=== PATIENT | male | born 1985 | race American Indian/Alaskan Native ===

== ENCOUNTER 2017-02-03 10:46 | Emergency (ER) | payer SELFPAY ==
--- NOTE | 2017-02-03 15:00 | Emergency Department Report ---
ED General Adult HPI - General Chief complaint: Recheck/Abnormal Lab/Rx Stated complaint: MED REFILL Time Seen by Provider: 02/03/17 14:49 Source: patient Mode of arrival: Ambulatory Limitations: Other (pt does not know what medication he is taking ) - History of Present Illness Initial comments: PT states that he was sent to the ED to get a refill on his schizophrenia medication. PT states he does not know what medication he takes. PT states his father usually administers his medication. PT states he last got his medication from [facility] ( a few months ago). MD Complaint: medication refill -: Gradual Associated Symptoms: denies: chest pain, loss of appetite, nausea/vomiting - Related Data Previous Rx's Medication Instructions Recorded Last Taken Type risperiDONE [RisperDAL] 2 mg PO BID #6 tablet 02/03/17 Unknown Rx Allergies Allergy/AdvReac Type Severity Reaction Status Date / Time No Known Allergies Allergy Verified 02/03/17 11:12 ED Review of Systems ROS: Stated complaint: MED REFILL Other details as noted in HPI Comment: All other systems reviewed and negative ENT: denies: ear pain, throat pain Cardiovascular: denies: chest pain Gastrointestinal: denies: abdominal pain Neurological: denies: headache Psychiatric: denies: auditory hallucinations, visual hallucinations, homicidal thoughts, suicidal thoughts ED Past Medical Hx - Past Medical History Hx Psychiatric Treatment: Yes (SCHIZOPHRENIA) - Surgical History Past Surgical History?: No - Social History Smoking Status: Never Smoker Substance Use Type: None - Medications Home Medications: Home Medications Medication Instructions Recorded Confirmed Last Taken Type risperiDONE [RisperDAL] 2 mg PO BID #6 tablet 02/03/17 Unknown Rx ED Physical Exam - General Limitations: No Limitations General appearance: alert, in no apparent distress - Head Head exam: Present: atraumatic, normocephalic - Eye Eye exam: Present: normal appearance, PERRL, EOMI. Absent: conjunctival injection - ENT ENT exam: Present: normal exam, normal external ear exam - Neck Neck exam: Present: normal inspection, full ROM - Respiratory Respiratory exam: Present: normal lung sounds bilaterally. Absent: respiratory distress, wheezes, rales, chest wall tenderness - Cardiovascular Cardiovascular Exam: Present: regular rate, normal rhythm, normal heart sounds - GI/Abdominal GI/Abdominal exam: Present: soft. Absent: tenderness - Extremities Exam Extremities exam: Present: normal inspection, full ROM - Back Exam Back exam: Present: normal inspection, full ROM. Absent: tenderness, CVA tenderness (R), CVA tenderness (L) - Neurological Exam Neurological exam: Present: alert, oriented X3, normal gait - Psychiatric Psychiatric exam: Present: flat affect. Absent: anxious, manic, homicidal ideation, suicidal ideation - Expanded Psychiatric Exam Expanded Focused psych exam: Absent: pressured speech, paranoid, catatonic, mute, restlessness, flight of ideas - Skin Skin exam: Present: warm, dry, intact, normal color ED Course Vital Signs 02/03/17 11:16 Temperature 98.6 F Pulse Rate 66 Respiratory 18 Rate Blood Pressure 111/79 O2 Sat by Pulse 99 Oximetry - Reevaluation(s) Reevaluation #1: 02/03/17 15:02 Pt does not know what medication he is supposed to be taking. Attempted to look pt up in [employer] website but no pt was found. Attempted to call pt's father - number on face sheet, but no answer. Reevaluation #2: 02/03/17 15:11 Spoke with Tomas Hightower, the territory manager of [employer], and he states he will try to contact the pt's father for RX information. Tomas is asking to be called back at 1800. Reevaluation #3: 02/03/17 17:30 attempted to call pt's father again, no answer. Attempted to call Ahsan Hightower again, no answer. Reevaluation #4: 02/03/17 18:42 attempted to call Ahsan Hightower again, no answer. Attempted to call pt's father again, PT's father answered but does not know what medication Carlos is on. He states that he has been on many medications recently. Pt's father states that pt has follow up appointment scheduled. PT uses [facility]. 02/03/17 18:47 Called Pharmacy. PT has RX on file for Risperdal 2mg po bid. PT has refills on hold at pharmacy. 02/03/17 18:54 PT's father aware that pt has refill on his RX and he states he can pick it up on Monday. Reevaluation #5: 02/03/17 18:57 PT aware of plan of care. No questions at this time. - Pulse Oximetry Interpretation Digit-Finger Initial Pulse Oximetry Readin Actions Taken: none ED Medical Decision Making - Differential Diagnosis medication refill Critical Care Time: No Critical care attestation.: If time is entered above; I have spent that time in minutes in the direct care of this critically ill patient, excluding procedure time. ED Disposition Clinical Impression: Schizophrenia Qualifiers: Schizophrenia type: unspecified Qualified Code(s): F20.9 - Schizophrenia, unspecified Disposition: - TO HOME OR SELFCARE Is pt being admited?: No Does the pt Need Aspirin: No Condition: Stable Instructions: Schizophrenia (ED) Additional Instructions: [facility] has a refill of your medication for 1 month. I spoke with your father and he plans on picking that up on Monday or Monday. Keep your appointment with your psychiatrist on February 13 return to the ED if any concerns Prescriptions: risperiDONE [RisperDAL] 2 mg PO BID #6 tablet Referrals: PRIMARY CARE, [Primary Care Provider] - 3-5 Days Time of Disposition: 19:01
[2017-02-03] MEDS ORDERED: RisperDAL PO ONE (18:54)
[2017-02-03 20:25] VITALS: BP 118/76
== END 2017-02-03 20:25 | disposition home or self-care (01) ==
LOC: ED 10:46
DX: F20.9 Schizophrenia, unspecified (principal)
CPT/HCPCS: 99283

== ENCOUNTER 2017-12-24 02:37 | Emergency (ER) | payer SELFPAY ==
[2017-12-24 03:59] LABS: Basophils % (Auto) 0.5 % (0.0-1.8); Eosinophils % (Auto) 0.2 % (0.0-4.3); Hematocrit 39.3 % (35.5-45.6); Hemoglobin 13.1 gm/dl (11.8-15.2); Lymphocytes # (Auto) 1.3 K/mm3 (1.2-5.4); Lymphocytes % (Auto) 30.6 % (13.4-35.0); Mean Corpuscular HGB Conc 33 % (32-34); Mean Corpuscular Hemoglobin 31 pg (28-32); Mean Corpuscular Volume 92 fl (84-94); Monocytes # (Auto) 0.3 K/mm3 (0.0-0.8); Monocytes % (Auto) 7.5 % (0.0-7.3); Platelet Count 234 K/mm3 (140-440); Red Blood Count 4.27 M/mm3 (3.65-5.03); Red Cell Distribution Width 13.3 % (13.2-15.2)
[2017-12-24 04:08] LABS: BUN/Creatinine Ratio 10; Blood Urea Nitrogen 10 mg/dL (9-20); Calcium 9.2 mg/dL (8.4-10.2); Hemolysis Index 6
[2017-12-24 08:06] LABS: Bilirubin,Urine NEG (Negative); Blood,Urine SM (Negative); Color,Urine Yellow (Yellow); Mucus,Urine 1+ /HPF; Protein,Urine <15 mg/dL mg/dL (Negative); Urobilinogen,Urine < 2.0 mg/dL (<2.0)
[2017-12-24 08:13] LABS: Amphetamine Screen,Urine PRESUMPTIVE NEGATIVE; Benzodiazepines Screen,Urine PRESUMPTIVE NEGATIVE; Cannabinoid Screen,Urine PRESUMPTIVE NEGATIVE; Cocaine Screen,Urine PRESUMPTIVE NEGATIVE; Methadone Screen,Urine PRESUMPTIVE NEGATIVE; Opiate Screen,Urine PRESUMPTIVE NEGATIVE
[2017-12-24 10:32] VITALS: BP 104/70
--- NOTE | 2017-12-24 11:13 | Emergency Department Report ---
ED General Adult HPI - General Chief complaint: Psych Stated complaint: MH Time Seen by Provider: 12/24/17 11:05 Source: patient, RN notes reviewed, old records reviewed Mode of arrival: Ambulatory Limitations: No Limitations - History of Present Illness Initial comments: This is a 32-year-old male who is known to this provider previously, has a history of schizophrenia, reports being on Risperdal, and reports being compliant with his medication. He presents to the ER with a complaint of auditory hallucinations for 3 days. The hallucinations are not commanding him to harm himself or harm other people. He states that the hallucinations are stating "hey, how are you?." He denies headache, neck pain, chest pain, abdominal pain, shortness of breath. He denies wanting to overdose. He denies urinary symptoms. These hallucinations that he is endorsing do not have exacerbating or relieving factors and do not radiate anywhere. -: Gradual Severity scale (0 -10): 0 Consistency: intermittent Improves with: cold therapy Worsens with: none Associated Symptoms: denies: confusion, chest pain, cough, diaphoresis, fever/ chills, headaches, loss of appetite, malaise, nausea/vomiting, rash, seizure, shortness of breath, syncope, weakness Treatments Prior to Arrival: none - Related Data Previous Rx's Medication Instructions Recorded Last Taken Type risperiDONE [RisperDAL] 2 mg PO BID #6 tablet 02/03/17 Unknown Rx Allergies Allergy/AdvReac Type Severity Reaction Status Date / Time No Known Allergies Allergy Verified 02/03/17 11:12 ED Review of Systems ROS: Stated complaint: MH Other details as noted in HPI Comment: All other systems reviewed and negative Constitutional: denies: fever Eyes: denies: vision change ENT: denies: epistaxis Respiratory: denies: cough Cardiovascular: denies: chest pain Gastrointestinal: denies: abdominal pain Genitourinary: denies: dysuria Musculoskeletal: denies: back pain Neurological: denies: weakness, numbness, paresthesias, confusion Psychiatric: auditory hallucinations. denies: anxiety, depression, visual hallucinations, homicidal thoughts, suicidal thoughts ED Past Medical Hx - Past Medical History Previous Medical History?: Yes Hx Psychiatric Treatment: Yes (SCHIZOPHRENIA) - Surgical History Past Surgical History?: No - Social History Smoking Status: Never Smoker Substance Use Type: None - Medications Home Medications: Home Medications Medication Instructions Recorded Confirmed Last Taken Type risperiDONE [RisperDAL] 2 mg PO BID #6 tablet 02/03/17 12/24/17 Unknown Rx ED Physical Exam - General Limitations: No Limitations General appearance: alert, in no apparent distress - Head Head exam: Present: atraumatic, normocephalic - Eye Eye exam: Present: normal appearance, PERRL, EOMI, other (visual acuity intact to finger counting, color perception, reading at a close distance). Absent: nystagmus - ENT ENT exam: Present: normal exam, normal orophraynx, mucous membranes moist, normal external ear exam - Neck Neck exam: Present: normal inspection, full ROM. Absent: tenderness, meningismus - Respiratory Respiratory exam: Present: normal lung sounds bilaterally. Absent: respiratory distress - Cardiovascular Cardiovascular Exam: Present: regular rate, normal rhythm, normal heart sounds. Absent: bradycardia, tachycardia, irregular rhythm, systolic murmur, diastolic murmur, rubs, gallop - GI/Abdominal GI/Abdominal exam: Present: soft, normal bowel sounds. Absent: distended, tenderness, guarding, rebound, rigid, pulsatile mass - Rectal Rectal exam: Present: deferred - Extremities Exam Extremities exam: Present: normal inspection, full ROM, normal capillary refill. Absent: tenderness, calf tenderness - Back Exam Back exam: Present: normal inspection, full ROM. Absent: tenderness, CVA tenderness (R), paraspinal tenderness, vertebral tenderness - Neurological Exam Neurological exam: Present: alert, oriented X3, CN II-XII intact, normal gait, other (Extraocular movements intact. Tongue midline. No facial droop. Facial sensation intact to light touch in the V1, V2, V3 distribution bilaterally. 5 and 5 strength in 4 extremities.. Sensation is intact to light touch in 4 extremities.). Absent: motor sensory deficit - Psychiatric Psychiatric exam: Absent: agitated, manic, homicidal ideation, suicidal ideation - Skin Skin exam: Present: warm, dry, intact, normal color. Absent: rash ED Course Vital Signs 12/24/17 12/24/17 03:17 10:29 Temperature 98.9 F 97.6 F Pulse Rate 98 H 72 Respiratory 20 20 Rate Blood Pressure 104/80 Blood Pressure 104/70 [Left] O2 Sat by Pulse 97 99 Oximetry ED Medical Decision Making - Lab Data Result diagrams: 12/24/17 03:29 12/24/17 03:29 Vital Signs 12/24/17 12/24/17 03:17 10:29 Temperature 98.9 F 97.6 F Pulse Rate 98 H 72 Respiratory 20 20 Rate Blood Pressure 104/80 Blood Pressure 104/70 [Left] O2 Sat by Pulse 97 99 Oximetry Lab Results 12/24/17 12/24/17 12/24/17 Range/Units 03:29 03:29 03:29 WBC (4.5-11.0) K/mm3 RBC (3.65-5.03) M/mm3 Hgb (11.8-15.2) gm/dl Hct (35.5-45.6) % MCV (84-94) fl MCH (28-32) pg MCHC (32-34) % RDW (13.2-15.2) % Plt Count (140-440) K/mm3 Lymph % (Auto) (13.4-35.0) % [place] % (Auto) (0.0-7.3) % Eos % (Auto) (0.0-4.3) % Baso % (Auto) (0.0-1.8) % Lymph # (1.2-5.4) K/mm3 [place] # (0.0-0.8) K/mm3 Eos # (0.0-0.4) K/mm3 Baso # (0.0-0.1) K/mm3 Seg Neutrophils % (40.0-70.0) % Seg Neutrophils # (1.8-7.7) K/mm3 Sodium 139 (137-145) mmol/L Potassium 3.7 (3.6-5.0) mmol/L Chloride 100.5 (98-107) mmol/L Carbon Dioxide 25 (22-30) mmol/L Anion Gap 17 mmol/L BUN 10 (9-20) mg/dL Creatinine 1.0 (0.8-1.5) mg/dL Estimated GFR > 60 ml/min BUN/Creatinine Ratio 10 % Glucose 113 H (75-100) mg/dL Calcium 9.2 (8.4-10.2) mg/dL Urine Color (Yellow) Urine Turbidity (Clear) Urine pH (5.0-7.0) Ur Specific [place] (1.003-1.030) Urine Protein (Negative) mg/dL Urine Glucose (UA) (Negative) mg/dL Urine Ketones (Negative) mg/dL Urine Blood (Negative) Urine Nitrite (Negative) Urine Bilirubin (Negative) Urine Urobilinogen (<2.0) mg/dL Ur Leukocyte Esterase (Negative) Urine WBC (Auto) (0.0-6.0) /HPF Urine RBC (Auto) (0.0-6.0) /HPF Urine Mucus /HPF Salicylates < 0.3 L (2.8-20.0) mg/dL Urine Opiates Screen Urine Methadone Screen Acetaminophen < 5.0 L (10.0-30.0) ug/mL Ur Barbiturates Screen Ur Phencyclidine Scrn Ur Amphetamines Screen U Benzodiazepines Scrn Urine Cocaine Screen U Marijuana (THC) Screen Drugs of Abuse Note Plasma/Serum Alcohol (0-0.07) % 12/24/17 12/24/17 12/24/17 Range/Units 03:29 03:29 04:25 WBC 4.2 L (4.5-11.0) K/mm3 RBC 4.27 (3.65-5.03) M/mm3 Hgb 13.1 (11.8-15.2) gm/dl Hct 39.3 (35.5-45.6) % MCV 92 (84-94) fl MCH 31 (28-32) pg MCHC 33 (32-34) % RDW 13.3 (13.2-15.2) % Plt Count 234 (140-440) K/mm3 Lymph % (Auto) 30.6 (13.4-35.0) % [place] % (Auto) 7.5 H (0.0-7.3) % Eos % (Auto) 0.2 (0.0-4.3) % Baso % (Auto) 0.5 (0.0-1.8) % Lymph # 1.3 (1.2-5.4) K/mm3 [place] # 0.3 (0.0-0.8) K/mm3 Eos # 0.0 (0.0-0.4) K/mm3 Baso # 0.0 (0.0-0.1) K/mm3 Seg Neutrophils % 61.2 (40.0-70.0) % Seg Neutrophils # 2.6 (1.8-7.7) K/mm3 Sodium (137-145) mmol/L Potassium (3.6-5.0) mmol/L Chloride (98-107) mmol/L Carbon Dioxide (22-30) mmol/L Anion Gap mmol/L BUN (9-20) mg/dL Creatinine (0.8-1.5) mg/dL Estimated GFR ml/min BUN/Creatinine Ratio % Glucose (75-100) mg/dL Calcium (8.4-10.2) mg/dL Urine Color Yellow (Yellow) Urine Turbidity Clear (Clear) Urine pH 5.0 (5.0-7.0) Ur Specific [place] 1.021 (1.003-1.030) Urine Protein <15 mg/dl (Negative) mg/dL Urine Glucose (UA) Neg (Negative) mg/dL Urine Ketones Neg (Negative) mg/dL Urine Blood Sm (Negative) Urine Nitrite Neg (Negative) Urine Bilirubin Neg (Negative) Urine Urobilinogen < 2.0 (<2.0) mg/dL Ur Leukocyte Esterase Neg (Negative) Urine WBC (Auto) 1.0 (0.0-6.0) /HPF Urine RBC (Auto) 2.0 (0.0-6.0) /HPF Urine Mucus 1+ /HPF Salicylates (2.8-20.0) mg/dL Urine Opiates Screen Urine Methadone Screen Acetaminophen (10.0-30.0) ug/mL Ur Barbiturates Screen Ur Phencyclidine Scrn Ur Amphetamines Screen U Benzodiazepines Scrn Urine Cocaine Screen U Marijuana (THC) Screen Drugs of Abuse Note Plasma/Serum Alcohol < 0.01 (0-0.07) % 12/24/17 Range/Units 07:50 WBC (4.5-11.0) K/mm3 RBC (3.65-5.03) M/mm3 Hgb (11.8-15.2) gm/dl Hct (35.5-45.6) % MCV (84-94) fl MCH (28-32) pg MCHC (32-34) % RDW (13.2-15.2) % Plt Count (140-440) K/mm3 Lymph % (Auto) (13.4-35.0) % [place] % (Auto) (0.0-7.3) % Eos % (Auto) (0.0-4.3) % Baso % (Auto) (0.0-1.8) % Lymph # (1.2-5.4) K/mm3 [place] # (0.0-0.8) K/mm3 Eos # (0.0-0.4) K/mm3 Baso # (0.0-0.1) K/mm3 Seg Neutrophils % (40.0-70.0) % Seg Neutrophils # (1.8-7.7) K/mm3 Sodium (137-145) mmol/L Potassium (3.6-5.0) mmol/L Chloride (98-107) mmol/L Carbon Dioxide (22-30) mmol/L Anion Gap mmol/L BUN (9-20) mg/dL Creatinine (0.8-1.5) mg/dL Estimated GFR ml/min BUN/Creatinine Ratio % Glucose (75-100) mg/dL Calcium (8.4-10.2) mg/dL Urine Color (Yellow) Urine Turbidity (Clear) Urine pH (5.0-7.0) Ur Specific [place] (1.003-1.030) Urine Protein (Negative) mg/dL Urine Glucose (UA) (Negative) mg/dL Urine Ketones (Negative) mg/dL Urine Blood (Negative) Urine Nitrite (Negative) Urine Bilirubin (Negative) Urine Urobilinogen (<2.0) mg/dL Ur Leukocyte Esterase (Negative) Urine WBC (Auto) (0.0-6.0) /HPF Urine RBC (Auto) (0.0-6.0) /HPF Urine Mucus /HPF Salicylates (2.8-20.0) mg/dL Urine Opiates Screen Presumptive negative Urine Methadone Screen Presumptive negative Acetaminophen (10.0-30.0) ug/mL Ur Barbiturates Screen Presumptive negative Ur Phencyclidine Scrn Presumptive negative Ur Amphetamines Screen Presumptive negative U Benzodiazepines Scrn Presumptive negative Urine Cocaine Screen Presumptive negative U Marijuana (THC) Screen Presumptive negative Drugs of Abuse Note Disclamer Plasma/Serum Alcohol (0-0.07) % - Medical Decision Making Differential diagnosis, including not limited to: Schizophrenia, mood disorder, auditory hallucinations Assessment and plan: 32-year-old male with auditory hallucinations. He is afebrile with reassuring vital signs, sober, walks with a steady gait, and is not homicidal or suicidal. He does not meet criteria for 1013. His laboratory studies were unremarkable. The patient was encouraged to continue his current outpatient Risperdal, and to follow up with outpatient psychiatry. Critical care attestation.: If time is entered above; I have spent that time in minutes in the direct care of this critically ill patient, excluding procedure time. ED Disposition Clinical Impression: History of hallucinations Disposition: DC-01 TO HOME OR SELFCARE Is pt being admited?: No Does the pt Need Aspirin: No Condition: Stable Instructions: Schizophrenia (ED) Additional Instructions: Continue current outpatient medications. Follow-up with psychiatrist within the next 3-5 days. Return to the ER right away with fevers, chills, lethargy, irritability, projectile vomiting, change in mental status, confusion, homicidality, suicidality. Patient was recently evaluated in this emergency room, and does not have any immediate or obvious medical contraindication to psychiatric admission, evaluation, consultation. [facility] Address: [address] [place] [address], [place] [address] Hours: Open 24 hours Referrals: DEIRDRE ROONEY MD [Primary Care Provider] - 3-5 Days WILBERT ANTONIO MD [Referring] - 3-5 Days
== END 2017-12-24 11:54 | disposition home or self-care (01) ==
LOC: ED 02:37
DX: F20.9 Schizophrenia, unspecified (principal)
CPT/HCPCS: 36415; 80048; 80307; 81001; 85025; 99283; G0480; 80320

== ENCOUNTER 2019-11-04 21:10 | Emergency (ER) | payer SELFPAY ==
[2019-11-04 21:50] LABS: Hematocrit 38.2 % (35.5-45.6); Hemoglobin 13.6 gm/dl (11.8-15.2); Mean Corpuscular HGB Conc 36 % (32-34); Mean Corpuscular Volume 93 fl (84-94); Platelet Count 258 K/mm3 (140-440); Red Blood Count 4.12 M/mm3 (3.65-5.03); Red Cell Distribution Width 12.5 % (13.2-15.2)
--- NOTE | 2019-11-04 22:02 | Emergency Department Report ---
<HILLARY MALONE - Last Filed: 11/04/19 21:58> ED Psych HPI - General Chief Complaint: Psych Stated Complaint: PARANOIA Time Seen by Provider: 11/04/19 21:39 Source: patient Mode of arrival: Ambulatory - History of Present Illness Initial Comments: Patient is 34 years old male with history of schizophrenia. Patient presented to the ER from a halfway stating that he is feeling paranoid. He stated that he feels people are chasing him. He denied any auditory hallucination but he said he see people sometimes. He denied any suicidal or homicidal ideation. Patient stated that he is out of his medication for the last 2-month. He stated that his father used to bring him his medication but he did not see him for the last 2 months. MD Complaint: altered mental status History of same: Yes Associated Symptoms: denies other symptoms - Related Data Home Medications Medication Instructions Recorded Confirmed Last Taken Cogentin 11/04/19 Unknown Previous Rx's Medication Instructions Recorded Last Taken Type risperiDONE [RisperDAL] 2 mg PO BID #6 tablet 02/03/17 Unknown Rx Allergies Allergy/AdvReac Type Severity Reaction Status Date / Time No Known Allergies Allergy Verified 02/03/17 11:12 ED Review of Systems Comment: All other systems reviewed and negative Constitutional: denies: chills, fever Respiratory: denies: cough, shortness of breath, SOB with exertion, wheezing Cardiovascular: denies: chest pain, palpitations Gastrointestinal: denies: abdominal pain, nausea, vomiting, diarrhea, constipation, hematemesis, melena, hematochezia Genitourinary: denies: urgency Musculoskeletal: denies: back pain Neurological: denies: headache, weakness, numbness, paresthesias, confusion, abnormal gait Psychiatric: visual hallucinations. denies: anxiety, depression, auditory hallucinations, homicidal thoughts, suicidal thoughts ED Past Medical Hx - Past Medical History Previous Medical History?: Yes Hx Psychiatric Treatment: Yes (SCHIZOPHRENIA) - Surgical History Past Surgical History?: Yes - Social History Smoking Status: Never Smoker - Medications Home Medications: Home Medications Medication Instructions Recorded Confirmed Last Taken Type risperiDONE [RisperDAL] 2 mg PO BID #6 tablet 02/03/17 11/04/19 Unknown Rx Cogentin 11/04/19 Unknown History ED Physical Exam - General Limitations: No Limitations General appearance: alert, in no apparent distress, other (Poor eye contact.) - Head Head exam: Present: atraumatic, normocephalic, normal inspection - Eye Eye exam: Present: normal appearance - ENT ENT exam: Present: normal exam, normal orophraynx, mucous membranes moist - Neck Neck exam: Present: normal inspection, full ROM. Absent: tenderness, meningismus, lymphadenopathy, thyromegaly - Respiratory Respiratory exam: Present: normal lung sounds bilaterally - Cardiovascular Cardiovascular Exam: Present: regular rate, normal rhythm, normal heart sounds - GI/Abdominal GI/Abdominal exam: Present: soft, normal bowel sounds. Absent: distended, tenderness, guarding, rebound, rigid, organomegaly, mass, bruit, pulsatile mass, hernia - Extremities Exam Extremities exam: Present: normal inspection, full ROM, normal capillary refill. Absent: pedal edema, calf tenderness - Back Exam Back exam: Present: normal inspection, full ROM. Absent: CVA tenderness (R), CVA tenderness (L) - Neurological Exam Neurological exam: Present: alert, oriented X3, CN II-XII intact - Psychiatric Psychiatric exam: Present: flat affect. Absent: agitated, homicidal ideation, suicidal ideation - Skin Skin exam: Present: warm, intact, normal color ED Medical Decision Making - Lab Data Result diagrams: 11/04/19 21:37 ED Disposition Clinical Impression: Paranoid schizophrenia, Noncompliance with medication regimen Disposition: DC/TX-65 PSY HOSP/PSY UNIT Condition: Stable Instructions: Schizophrenia (ED) Additional Instructions: Follow-up with your doctor or doctor/clinic provided. Return if symptoms wo rsen as indicated by your discharge instructions. Resources provided for follow up: Professional and Agency Contacts To help Resolve Crises(06/02) [place] Crisis Line: Suicide Prevention Line: Crisis Text Line: Text START to 416282 Emergency: 911 Outpatient [facility] Behavioral Health Resources: [facility]: [facility] [address] [place], [place] [address] [facility]: [facility] - [address] [place] [address] Monday thru Monday - 8am - 5pm [facility] Address: [address] [place] [address], [place] [address] Monday thru Monday- 7am-2pm [facility] Address: [address] [place], [place] [address] Monday thru Monday: 8:30AM-5PM Referrals: PRIMARY CARE, [Primary Care Provider] - 3-5 Days <FLORA GALINDO - Last Filed: 11/05/19 13:48> ED Review of Systems ROS: Stated complaint: PARANOIA Other details as noted in HPI ED Course Vital Signs 11/04/19 11/04/19 11/05/19 21:14 22:56 07:27 Temperature 99.1 F 98.6 F 98.5 F Pulse Rate 94 H 73 70 Respiratory 18 16 18 Rate Blood Pressure 114/83 117/73 Blood Pressure 102/71 [Left] O2 Sat by Pulse 97 98 99 Oximetry - Reevaluation(s) Reevaluation #1: 11/05/19 13:11 pt cleared by no meds recommended f/u options provided ED Medical Decision Making - Lab Data Result diagrams: 11/04/19 21:37 11/04/19 21:37 - Medical Decision Making Patient was paranoid schizophrenia deemed medically clear for discharge from mental health. He has been noncompliant with medications because his father has not yet dropped the medications off at the halfway. Mental health manager cardiology contacted halfway and they will try to coordinate drop-off of patient's medications with father so that the patient can continue taking his prescribed medications. Patient does not meet 1013 criteria and is cleared for discharge Critical care attestation.: If time is entered above; I have spent that time in minutes in the direct care of this critically ill patient, excluding procedure time. ED Disposition Is pt being admited?: No Does the pt Need Aspirin: No Time of Disposition: 13:47
[2019-11-04 22:12] LABS: BUN/Creatinine Ratio 15; Blood Urea Nitrogen 15 mg/dL (9-20); Calcium 8.9 mg/dL (8.4-10.2); Hemolysis Index 16
[2019-11-04 22:37] LABS: Basophils % (Manual) 0 % (0.0-1.8); RBC Morphology Normal; Total Cells Counted 100
[2019-11-05 00:59] LABS: Bilirubin,Urine NEG (Negative); Blood,Urine SM (Negative); Color,Urine Yellow (Yellow); Mucus,Urine FEW /HPF; Protein,Urine <15 mg/dL mg/dL (Negative); Urobilinogen,Urine < 2.0 mg/dL (<2.0); WBC,Urine < 1.0 /HPF (0.0-6.0)
[2019-11-05 01:09] LABS: Amphetamine Screen,Urine PRESUMPTIVE NEGATIVE; Benzodiazepines Screen,Urine PRESUMPTIVE NEGATIVE; Cannabinoid Screen,Urine PRESUMPTIVE NEGATIVE; Cocaine Screen,Urine PRESUMPTIVE NEGATIVE; Methadone Screen,Urine PRESUMPTIVE NEGATIVE; Opiate Screen,Urine PRESUMPTIVE NEGATIVE
[2019-11-05 12:57] VITALS: BP 102/71
== END 2019-11-05 15:00 ==
LOC: EEVIPCON 21:10 → ED 21:10
DX: F20.0 Paranoid schizophrenia (principal); Z79.899 Other long term (current) drug therapy
CPT/HCPCS: 36415; 80048; 80307; 80320; 81001; 85007; 85025; G0480

== ENCOUNTER 2019-11-05 23:18 | Emergency (ER) | payer SELFPAY ==
[2019-11-05 23:25] VITALS: BP 124/81
--- NOTE | 2019-11-05 23:43 | Emergency Department Report ---
ED Psych HPI - General Chief Complaint: Psych Stated Complaint: MH EVAL Time Seen by Provider: 11/05/19 23:36 Source: patient Mode of arrival: Ambulatory - History of Present Illness Initial Comments: Patient is a 34-year-old male that presents emergency room with complaints of being homeless. Patient states he just needs a place to stay. Patient denies suicidal homicidal ideation. Patient denies hearing voices. Patient denies hallucinations. Patient denies recent drug use. Patient states he needs a refill of his medications. Patient states he was just seen here and discharged. Patient states he told the people in triage that he was paranoid but he is actually not. Patient states he just needs food and correction. MD Complaint: other -: Sudden Associated Psychiatric Symptoms: none History of same: No Improves With: none Worsens With: none Context: significant life stressor Treatments Prior to Arrival: none - Related Data Home Medications Medication Instructions Recorded Confirmed Last Taken Cogentin 11/04/19 Unknown Previous Rx's Medication Instructions Recorded Last Taken Type RX: risperiDONE [RisperDAL] 2 mg PO BID #6 tablet 02/03/17 Unknown Rx Allergies Allergy/AdvReac Type Severity Reaction Status Date / Time No Known Allergies Allergy Verified 02/03/17 11:12 ED Review of Systems ROS: Stated complaint: EVAL Other details as noted in HPI Constitutional: denies: chills, fever Eyes: denies: eye pain, eye discharge, vision change ENT: denies: ear pain, throat pain Respiratory: denies: cough, shortness of breath, wheezing Cardiovascular: denies: chest pain, palpitations Endocrine: no symptoms reported Gastrointestinal: denies: abdominal pain, nausea, diarrhea Genitourinary: denies: urgency, dysuria Musculoskeletal: denies: back pain, joint swelling, arthralgia Skin: denies: rash, lesions Neurological: denies: headache, weakness, paresthesias Psychiatric: denies: anxiety, depression, auditory hallucinations, visual hallucinations, homicidal thoughts, suicidal thoughts Hematological/Lymphatic: denies: easy bleeding, easy bruising ED Past Medical Hx - Past Medical History Previous Medical History?: Yes Hx Psychiatric Treatment: Yes (SCHIZOPHRENIA) - Surgical History Past Surgical History?: No - Family History Family history: no significant - Social History Smoking Status: Never Smoker Substance Use Type: None - Medications Home Medications: Home Medications Medication Instructions Recorded Confirmed Last Taken Type RX: risperiDONE [RisperDAL] 2 mg PO BID #6 tablet 02/03/17 11/04/19 Unknown Rx Cogentin 11/04/19 Unknown History ED Physical Exam - General Limitations: No Limitations General appearance: alert, in no apparent distress - Head Head exam: Present: atraumatic, normocephalic - Eye Eye exam: Present: normal appearance - ENT ENT exam: Present: mucous membranes moist - Neck Neck exam: Present: normal inspection - Respiratory Respiratory exam: Present: normal lung sounds bilaterally. Absent: respiratory distress - Cardiovascular Cardiovascular Exam: Present: regular rate, normal rhythm. Absent: systolic murmur, diastolic murmur, rubs, gallop - GI/Abdominal GI/Abdominal exam: Present: soft, normal bowel sounds - Rectal Rectal exam: Present: deferred - Extremities Exam Extremities exam: Present: normal inspection - Back Exam Back exam: Present: normal inspection - Neurological Exam Neurological exam: Present: alert, oriented X3 - Psychiatric Psychiatric exam: Present: flat affect - Skin Skin exam: Present: warm, dry, intact, normal color. Absent: rash ED Course Vital Signs 11/05/19 11/06/19 23:24 00:00 Temperature 98.6 F Pulse Rate 79 Respiratory 16 18 Rate Blood Pressure 124/81 O2 Sat by Pulse 97 100 Oximetry - Reevaluation(s) Reevaluation #1: Initial evaluation done. Patient does not require further emergency medical evaluation. I discussed clinical findings with patient. I discussed plan of care with patient. Patient is stable for discharge. Patient will be discharged home. Patient given discharge instructions. Patient voiced understanding of discharge instructions. 11/05/19 23:42 ED Medical Decision Making - Medical Decision Making Patient is a 34-year-old male that presents emergency room for a place to stay. During initial evaluation, the patient stated he did not have any paranoia or psychiatric complaints he just needed a place to stay. Patient had a medical clearance screening exam. Patient medically cleared. Patient will be discha rged home. - Differential Diagnosis Homelessness Critical care attestation.: If time is entered above; I have spent that time in minutes in the direct care of this critically ill patient, excluding procedure time. ED Disposition Clinical Impression: Homeless Disposition: MED SCREENING EXAM-LEFT Is pt being admited?: No Does the pt Need Aspirin: No Condition: Stable Additional Instructions: Patient to follow-up with primary care in 2 to 3 days. Patient to follow-up with psychiatrist in 2 to 3 days. Patient to rest. Patient to increase water. Patient to continue meds as directed. Patient to return to the ER if condition worsens, changes or new symptoms arise.. Referrals: PRIMARY CARE, [Primary Care Provider] - 2-3 Days Time of Disposition: 23:45
== END 2019-11-06 00:01 | disposition left against medical advice (07) ==
LOC: ED 23:18
DX: F20.9 Schizophrenia, unspecified (principal); Z76.0 Encounter for issue of repeat prescription; Z59.0 Homelessness; Z79.899 Other long term (current) drug therapy

== ENCOUNTER 2019-12-21 15:45 | Emergency (ER) | payer SELFPAY | END 2019-12-21 22:30 | disposition left against medical advice (07) | LOC: ED 15:45 | DX: R44.0 Auditory hallucinations (principal); Z53.21 Procedure and treatment not carried out due to patient leaving prior to being seen by health care provider ==

== ENCOUNTER 2020-05-21 15:55 | Emergency (ER) | payer SELFPAY ==
--- NOTE | 2020-05-21 16:01 | Event Note ---
ED Screening Note Date of service: 05/21/20 Time: 16:00 ED Screening Note: Patient with history of schizophrenia presents for auditory hallucinations Denies SI/HI Lives in a detention for patient This initial assessment/diagnostic orders/clinical plan/treatment(s) is/are subject to change based on patients health status, clinical progression and re- assessment by fellow clinical providers in the ED. Further treatment and workup at subsequent clinical providers discretion. Patient/guardian urged not to elope from the ED as their condition may be serious if not clinically assessed and managed. Initial orders include: Main ED Labs Mental health eval
[2020-05-21 16:45] LABS: Basophils % (Auto) 0.8 % (0.0-1.8); Eosinophils # (Auto) 0.2 K/mm3 (0.0-0.4); Eosinophils % (Auto) 5.6 % (0.0-4.3); Hematocrit 37.5 % (35.5-45.6); Lymphocytes # (Auto) 1.4 K/mm3 (1.2-5.4); Mean Corpuscular HGB Conc 35 % (32-34); Mean Corpuscular Volume 93 fl (84-94); Monocytes # (Auto) 0.3 K/mm3 (0.0-0.8); Monocytes % (Auto) 6.6 % (0.0-7.3); Platelet Count 226 K/mm3 (140-440); Red Blood Count 4.02 M/mm3 (3.65-5.03); Red Cell Distribution Width 12.7 % (13.2-15.2)
[2020-05-21 17:09] LABS: Alanine Aminotransferase 9 units/L (7-56); Albumin 4.2 g/dL (3.9-5); BUN/Creatinine Ratio 14; Blood Urea Nitrogen 14 mg/dL (9-20); Calcium 8.6 mg/dL (8.4-10.2); Hemolysis Index 7
--- NOTE | 2020-05-21 19:01 | Emergency Department Report ---
ED Psych HPI - General Chief Complaint: Psych Stated Complaint: Mental Health Time Seen by Provider: 05/21/20 15:58 Source: patient Mode of arrival: Ambulatory - History of Present Illness Initial Comments: 35-year-old male, history of schizophrenia, presents to ED with complaint of auditory hallucinations. Patient states he cannot remember what the voices have told him right now. He denies any command auditory hallucinations. He denies any SI or HI. Patient reports he is compliant with his medications. He denies any drug or alcohol abuse. -: This afternoon Associated Psychiatric Symptoms: auditory hallucinations History of same: Yes Quality: intermittent Improves With: none Worsens With: none Associated Symptoms: denies other symptoms Treatments Prior to Arrival: none - Related Data Home Medications Medication Instructions Recorded Confirmed Last Taken Benztropine [Cogentin] 1 mg PO BID 05/21/20 05/21/20 Unknown Previous Rx's Medication Instructions Recorded Last Taken Type risperiDONE [RisperDAL] 2 mg PO BID #6 tablet 02/03/17 Unknown Rx Allergies Allergy/AdvReac Type Severity Reaction Status Date / Time No Known Allergies Allergy Verified 05/21/20 15:57 ED Review of Systems ROS: Stated complaint: Mental Health Other details as noted in HPI Comment: All other systems reviewed and negative Psychiatric: auditory hallucinations. denies: visual hallucinations, homicidal thoughts, suicidal thoughts ED Past Medical Hx - Past Medical History Hx Psychiatric Treatment: Yes (SCHIZOPHRENIA) - Social History Smoking Status: Never Smoker Substance Use Type: None - Medications Home Medications: Home Medications Medication Instructions Recorded Confirmed Last Taken Type risperiDONE [RisperDAL] 2 mg PO BID #6 tablet 02/03/17 05/21/20 Unknown Rx Benztropine [Cogentin] 1 mg PO BID 05/21/20 05/21/20 Unknown History ED Physical Exam - General Limitations: No Limitations General appearance: alert, in no apparent distress - Head Head exam: Present: atraumatic, normocephalic - Eye Eye exam: Present: normal appearance, EOMI - ENT ENT exam: Present: mucous membranes moist - Neck Neck exam: Present: normal inspection - Respiratory Respiratory exam: Present: normal lung sounds bilaterally. Absent: respiratory distress - Cardiovascular Cardiovascular Exam: Present: regular rate, normal rhythm - GI/Abdominal GI/Abdominal exam: Absent: distended - Extremities Exam Extremities exam: Present: normal inspection - Neurological Exam Neurological exam: Present: alert, oriented X3 - Psychiatric Psychiatric exam: Present: normal affect, normal mood. Absent: homicidal ideation, suicidal ideation - Skin Skin exam: Present: warm, dry, intact, normal color ED Course Vital Signs 05/21/20 05/21/20 16:01 16:09 Temperature 98.4 F Pulse Rate 81 Respiratory 20 18 Rate Blood Pressure 119/86 [Right] O2 Sat by Pulse 97 Oximetry ED Medical Decision Making - Lab Data Result diagrams: 05/21/20 16:34 05/21/20 16:34 - Medical Decision Making Patient seen and evaluated by mental health. He does not meet criteria for inpatient placement. Patient will be given outpatient resources. Critical care attestation.: If time is entered above; I have spent that time in minutes in the direct care of this critically ill patient, excluding procedure time. ED Disposition Clinical Impression: Schizophrenia Disposition: DC-01 TO HOME OR SELFCARE Is pt being admited?: No Condition: Stable Instructions: Schizophrenia Additional Instructions: StartDate Labs Security Administration: Address: [address] [place], [place] [id number] [place] Crisis Line: Referrals: PRIMARY CARE [Primary Care Provider] - 3-5 Days Time of Disposition: 19:00
[2020-05-21 20:09] VITALS: BP 94/62
== END 2020-05-21 22:52 | disposition home or self-care (01) ==
LOC: ED 15:55
DX: F20.9 Schizophrenia, unspecified (principal)
CPT/HCPCS: 36415; 80053; 80320; 85025; 99284; G0480

== ENCOUNTER 2020-05-29 16:40 | Emergency (ER) | payer SELFPAY ==
[2020-05-29 17:35] VITALS: BP 113/71
--- NOTE | 2020-05-29 21:43 | Emergency Department Report ---
ED Psych HPI - General Chief Complaint: Psych Stated Complaint: MENTAL HEALTH Time Seen by Provider: 05/29/20 21:31 Source: patient Mode of arrival: Ambulatory - History of Present Illness Initial Comments: Patient is a 35-year-old male with a past medical history of schizophrenia who is presenting with a desire to have his medications changed. Patient was here several days ago for the same complaint. He actually left his detention been out to the staff. Patient also told us that he believes his father is and is no longer getting his SSI check. He wanted help getting in touch with me so security office. He is denying homicidal suicidal ideations. The voices are not commanding him to harm himself or others. Please see his note from our mental health assessment team. 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 DENIES ANY SI/HI. " I THINK MY DAD IS AND HE HAS MY SSI." LIVES IN A [facility]. " I WALKED HERE. THEY DONT KNOW THAT IM GONE."Pt reports that he lives in an apartment in [place]; pt explained that it is a detention managed by [facility]. Pt has lived at this residence "a few years." Pt reports he receives SSI disability; "my father was over it, but lost touch with him." Pt requests assistance with contact info for Social Security office to see who the new payee is since he lost contact with his father. Pt denies any depression or suicidal thoughts or plans. Pt denies any thoughts or plans to harm thers. Pt is calm and cooperative throughout assessment.Pt is alert and oriented x 4. Pt denies AH or VH. Pt is calm and cooperative with congruent affect. Pt does not appear to be responding to internal stimuli.Pt carries a diagnosis of Schizophrenia. Pt reports that his medications, Risperdol and Cogentin, is delivered to the detention by the pharmacy. Pt reports he is compliant with his medications. Pt reports he was admitted to [facility], "a few years ago." RECOMMENDATION: Pt does not meet criteria for 1013. Pt will be provided the info for Social Security office as requested. Crisis line number also placed in pt's chart. Vdihi Villalta LPC Initialized on 05/21/20 18:24 - END OF NOTE - Related Data Home Medications Medication Instructions Recorded Confirmed Last Taken Benztropine [Cogentin] 1 mg PO BID 05/21/20 05/21/20 Unknown Previous Rx's Medication Instructions Recorded Last Taken Type risperiDONE [RisperDAL] 2 mg PO BID #6 tablet 02/03/17 Unknown Rx Allergies Allergy/AdvReac Type Severity Reaction Status Date / Time No Known Allergies Allergy Verified 05/21/20 15:57 ED Review of Systems ROS: Stated complaint: MENTAL HEALTH Other details as noted in HPI Comment: All other systems reviewed and negative ED Past Medical Hx - Past Medical History Hx Psychiatric Treatment: Yes (SCHIZOPHRENIA) - Social History Smoking Status: Never Smoker Substance Use Type: None - Medications Home Medications: Home Medications Medication Instructions Recorded Confirmed Last Taken Type risperiDONE [RisperDAL] 2 mg PO BID #6 tablet 02/03/17 05/21/20 Unknown Rx Benztropine [Cogentin] 1 mg PO BID 05/21/20 05/21/20 Unknown History ED Physical Exam - General Limitations: No Limitations General appearance: alert, in no apparent distress - Head Head exam: Present: atraumatic, normocephalic - Eye Eye exam: Present: normal appearance - ENT ENT exam: Present: mucous membranes moist - Neck Neck exam: Present: normal inspection - Respiratory Respiratory exam: Present: normal lung sounds bilaterally. Absent: respiratory distress, wheezes, rales, rhonchi - Cardiovascular Cardiovascular Exam: Present: regular rate, normal rhythm. Absent: systolic murmur, diastolic murmur, rubs, gallop - GI/Abdominal GI/Abdominal exam: Present: soft, normal bowel sounds - Rectal Rectal exam: Present: deferred - Extremities Exam Extremities exam: Present: normal inspection - Back Exam Back exam: Present: normal inspection - Neurological Exam Neurological exam: Present: alert, oriented X3 - Psychiatric Psychiatric exam: Present: normal mood, flat affect - Skin Skin exam: Present: warm, dry, intact, normal color. Absent: rash ED Course Vital Signs 05/29/20 17:33 Temperature 97.6 F Pulse Rate 88 Respiratory 20 Rate Blood Pressure 113/71 O2 Sat by Pulse 96 Oximetry ED Medical Decision Making - Medical Decision Making Patient was just placed on this regimen of Risperdal and Cogentin and he can continue with these medications at the current dose. Give him some outpatient psychiatric resources as well. I also printed out the phone number to the Social Security administration office that he can call regarding his SSI check. Patient be discharged home. Critical care attestation.: If time is entered above; I have spent that time in minutes in the direct care of this critically ill patient, excluding procedure time. ED Disposition Clinical Impression: Schizophrenia Qualifiers: Schizophrenia type: other Qualified Code(s): F20.89 - Other schizophrenia; F20 .8 - Other schizophrenia Disposition: DC-01 TO HOME OR SELFCARE Is pt being admited?: No Does the pt Need Aspirin: No Condition: Stable Instructions: Schizophrenia Time of Disposition: 21:42
== END 2020-05-29 21:50 | disposition home or self-care (01) ==
LOC: ED 16:40
DX: F20.89 Other schizophrenia (principal)
CPT/HCPCS: 99281

== ENCOUNTER 2021-06-07 20:41 | Emergency (ER) | payer SELFPAY ==
[2021-06-07] MEDS ORDERED: risperiDONE 1 MG TAB PO ONE (21:20)
--- NOTE | 2021-06-07 21:27 | Emergency Department Report ---
ED Psych HPI - General Chief Complaint: Psych Stated Complaint: MH Time Seen by Provider: 06/07/21 21:23 Source: patient Mode of arrival: Ambulatory - History of Present Illness Initial Comments: 36-year-old male with history of schizophrenia here with complaint of auditory hallucinations. Patient states that he has been off his meds for a few weeks and symptoms have been present for about the same amount of time. They have worsened over the past couple of days. He is also experiencing significant stressors he states that he was previously in a skilled nursing however he left because he did not feel like it was at that situation. He denies any medical complaints and denies any homicidal or suicidal ideation. Complaint: other (auditory hallucinations) -: week(s) Associated Psychiatric Symptoms: none History of same: Yes Quality: intermittent Context: significant life stressor Associated Symptoms: denies other symptoms Treatments Prior to Arrival: none - Related Data Home Medications Medication Instructions Recorded Confirmed Last Taken Benztropine [Cogentin] 1 mg PO BID 05/21/20 05/21/20 Unknown Previous Rx's Medication Instructions Recorded Last Taken Type risperiDONE [RisperDAL] 2 mg PO BID #6 tablet 02/03/17 Unknown Rx Allergies Allergy/AdvReac Type Severity Reaction Status Date / Time No Known Allergies Allergy Verified 05/21/20 15:57 ED Review of Systems ROS: Stated complaint: MH Other details as noted in HPI Constitutional: no symptoms reported Eyes: denies: eye pain ENT: denies: throat pain Respiratory: denies: cough, shortness of breath Cardiovascular: denies: chest pain Endocrine: no symptoms reported Gastrointestinal: denies: abdominal pain, nausea, vomiting Genitourinary: denies: urgency Musculoskeletal: denies: back pain Skin: denies: rash Neurological: denies: headache, weakness Psychiatric: auditory hallucinations. denies: homicidal thoughts, suicidal thoughts Hematological/Lymphatic: denies: easy bleeding ED Past Medical Hx - Past Medical History Previous Medical History?: Yes Hx Psychiatric Treatment: Yes (SCHIZOPHRENIA) - Surgical History Past Surgical History?: No - Social History Smoking Status: Never Smoker Substance Use Type: None - Medications Home Medications: Home Medications Medication Instructions Recorded Confirmed Last Taken Type risperiDONE [RisperDAL] 2 mg PO BID #6 tablet 02/03/17 05/21/20 Unknown Rx Benztropine [Cogentin] 1 mg PO BID 05/21/20 05/21/20 Unknown History ED Physical Exam - General Limitations: No Limitations General appearance: alert, in no apparent distress - Head Head exam: Present: atraumatic, normocephalic - Eye Eye exam: Present: normal appearance Pupils: Present: normal accommodation - ENT ENT exam: Present: normal exam - Neck Neck exam: Present: normal inspection - Respiratory Respiratory exam: Absent: respiratory distress - Expanded Cardiovascular Exam Expanded Peripheral pulses: 2+: Radial (R), Radial (L) - GI/Abdominal GI/Abdominal exam: Present: soft. Absent: distended, tenderness, guarding, rebound - Rectal Rectal exam: Present: deferred - Extremities Exam Extremities exam: Present: normal inspection, full ROM. Absent: tenderness - Back Exam Back exam: Present: normal inspection - Neurological Exam Neurological exam: Present: alert, oriented X3 - Psychiatric Psychiatric exam: Present: flat affect. Absent: anxious, homicidal ideation, suicidal ideation - Skin Skin exam: Present: dry ED Course Vital Signs 06/07/21 06/07/21 06/07/21 20:46 21:29 22:23 Temperature 98.2 F 98.2 F Pulse Rate 94 H 94 H Respiratory 18 18 18 Rate Blood Pressure 113/74 113/74 [Right] O2 Sat by Pulse 98 98 98 Oximetry - Reevaluation(s) Reevaluation #1: 06/07/21 22:17 Patient is medically cleared at this time after reviewing patient's labs which are grossly normal. Patient is still pending urinalysis and UDS but this will not change patient's management. Patient is a well awaiting mental health consultation. Reevaluation #2: 06/07/21 23:05 Patient has been cleared by mental health. Patient is to follow-up. Resources have been provided to patient. ED Medical Decision Making - Medical Decision Making Patient is a 36-year-old male history of schizophrenia here with complaint of auditory hallucinations. Patient also reports he has been off medications. Need to evaluate with basic labs. Will give dose of patient's home Risperdal 2 mg and will reevaluate. Mental health consult has been placed however patient likely to be clear given lack of homicidal or suicidal ideations. Critical care attestation.: If time is entered above; I have spent that time in minutes in the direct care of this critically ill patient, excluding procedure time. ED Disposition Clinical Impression: Auditory hallucinations, Homelessness unspecified Disposition: HOME / SELF CARE / HOMELESS Is pt being admited?: No Does the pt Need Aspirin: No Condition: Stable Additional Instructions: Professional and Agency Contacts To help Resolve Crises(06/02) OR Crisis Line: Suicide Prevention Line: Crisis Text Line: Text START to [phone] Emergency: 911 Outpatient COMMUNITY Behavioral Health Resources: [facility]: [facility] [address] [place], [place] [address] [place]: [facility] - [address] [place] [address] Monday thru Monday - 8am - 5pm [place]: [facility] Address: [address] [place] [address] Monday thru Monday- 7am-2pm [facility] Address: [address] [place] [address] Monday thru Monday: 8:30AM-5PM Referrals: PRIMARY CARE, [Primary Care Provider] - 3-5 Days
[2021-06-07 23:57] VITALS: BP 132/68
== END 2021-06-07 23:57 | disposition home or self-care (01) ==
LOC: EEVIPCON 20:41 → ED 20:41
DX: F20.9 Schizophrenia, unspecified (principal); R44.0 Auditory hallucinations; Z59.00 Homelessness unspecified
CPT/HCPCS: 99283